=== PATIENT | male | born 1995 | race African-American/Black ===

== ENCOUNTER 2020-09-10 12:27 | Emergency (ER) | payer OTHER ==
[~2020-09-10] VITALS: Ht 177.8 cm; Wt 84.0 kg
[2020-09-10] MEDS: ONDANSETRON ODT 4 MG TAB.RAPDIS PO ONE (13:02)
--- NOTE | 2020-09-10 13:02 | PHYS DOC ---
Past History Past Medical History: No Pertinent History Past Surgical History: No Surgical History Alcohol Use: Occasionally General Adult EDM: Chief Complaint: NAUSEA/VOMITING/DIARRHEA HPI: HPI: 25-year-old male presents with nausea and vomiting for the last 5 days. He is able to keep fluids down, but when he tries to eat food he vomits most of the ti me. He has been able to keep a little bit down. He otherwise feels fine. He is not having any stomach pain or other symptoms. He denies fever or chills. Review of Systems: Review of Systems: Constitutional: Denies fever or chills Eyes: Denies change in visual acuity HENT: Denies nasal congestion or sore throat Respiratory: Denies cough or shortness of breath Cardiovascular: Denies chest pain or edema GI: nausea, vomiting. Denies abdominal pain, bloody stools or diarrhea : Denies dysuria Musculoskeletal: Denies back pain or joint pain Integument: Denies rash Neurologic: Denies headache, focal weakness or sensory changes Endocrine: Denies polyuria or polydipsia Lymphatic: Denies swollen glands Psychiatric: Denies depression or anxiety Heart Score: Risk Factors: Risk Factors: DM, Current or recent (<one month) smoker, HTN, HLP, family history of CAD, obesity. Risk Scores: Score 0 - 3: 2.5% MACE over next 6 weeks - Discharge Home Score 4 - 6: 20.3% MACE over next 6 weeks - Admit for Clinical Observation Score 7 - 10: 72.7% MACE over next 6 weeks - Early Invasive Strategies Current Medications: Current Meds: Current Medications Medications (Trade) Dose Ordered Sig/[facility] Start Time Stop Time Status Last Admin Dose Admin Ondansetron HCl (Zofran Odt) 4 mg 1X ONCE 09/10/20 13:00 09/10/20 13:01 Allergies: Allergies: Allergies Coded Allergies Type Severity Reaction Last Updated Verified No Known Drug Allergies 09/10/20 No Physical Exam: PE: Constitutional: Well developed, well nourished, no acute distress, non-toxic appearance. [] HENT: Normocephalic, atraumatic, bilateral external ears normal, oropharynx moist, no oral exudates, nose normal. [] Eyes: PERRLA, EOMI, conjunctiva normal, no discharge. [] Neck: Normal range of motion, no tenderness, supple, no stridor. [] Cardiovascular:Heart rate regular rhythm, no murmur [] Lungs & Thorax: Bilateral breath sounds clear to auscultation [] Abdomen: Bowel sounds normal, soft, no tenderness, no masses, no pulsatile masses. [] Skin: Warm, dry, no erythema, no rash. [] Back: No tenderness, no CVA tenderness. [] Extremities: No tenderness, no cyanosis, no clubbing, ROM intact, no edema. [] Neurologic: Alert and oriented X 3, normal motor function, normal sensory function, no focal deficits noted. [] Psychologic: Affect normal, judgement normal, mood normal. [] Current Patient Data: Vital Signs: Vital Signs Date Time Temp Pulse Resp B/P (MAP) Pulse Ox O2 Delivery O2 Flow Rate FiO2 09/10/20 12:35 98.3 77 16 147/82 (103) 96 Room Air EKG: EKG: [] Radiology/Procedures: Radiology/Procedures: [] Course & Med Decision Making: Course & Med Decision Making Pertinent Labs and Imaging studies reviewed. (See chart for details) We will give the patient 4 mg of Zofran ODT. He has had no vomiting in the emergency room. He passed p.o. challenge. I will discharge him with a pr escription for the same. He is stable for discharge at this time. [] [place] Disclaimer: [place] Disclaimer: This electronic medical record was generated, in whole or in part, using a voice recognition dictation system. Departure Departure: Impression: Primary Impression: Nausea and vomiting Qualified Codes: R11.2 - Nausea with vomiting, unspecified Disposition: 01 DC HOME SELF CARE/HOMELESS Condition: STABLE Referrals: PCP,NO (PCP) Patient Instructions: Nausea and Vomiting, Beqk-ef-Dvyo Scripts Ondansetron (ONDANSETRON ODT) 4 Mg Tab.rapdis 1 TAB PO PRN Q6-8HRS PRN for VOMITING, #16 TAB Prov: LIZ CHAN DO 09/10/20 LIZ CHAN DO Sep 10, 2020 13:02
[2020-09-10] MEDS ORDERED: ONDA4TAB12 PO (13:37)
[2020-09-10 13:40] VITALS: BP 142/78
== END 2020-09-10 13:38 | disposition home or self-care (01) ==
LOC: ER 12:27
DX: R11.2 Nausea with vomiting, unspecified (principal)
CPT/HCPCS: 99283; Q0162

== ENCOUNTER 2020-09-18 15:10 | Emergency (ER) | payer OTHER ==
[~2020-09-18] VITALS: Ht 177.8 cm; Wt 86.3 kg
[~2020-09-18 15:10] MED LIST: ONDA4TAB12 PO
--- NOTE | 2020-09-18 15:36 | PHYS DOC ---
Past History Past Medical History: No Pertinent History Past Surgical History: No Surgical History Alcohol Use: Occasionally General Adult EDM: Chief Complaint: NAUSEA/VOMITING/DIARRHEA HPI: HPI: 25-year-old male coming in for emesis associate with epigastric pain. Says you that really keep anything down, but p.o. intake resulted emesis this morning. Nonbloody nonbilious. No history of abdominal surgeries. Has been having symptoms intermittently since the beginning of the year but has not followed up with his primary care. Was seen here for the same thing 8 days ago but had normal vitals and was p.o. challenged with Zofran. The Zofran was initially working but is not anymore. No fevers, no food allergies, occasional alcohol use, denies any drug use including marijuana Review of Systems: Review of Systems: Constitutional: Denies fever or chills Eyes: Denies change in visual acuity HENT: Denies nasal congestion or sore throat Respiratory: Denies cough or shortness of breath Cardiovascular: Denies chest pain or edema GI: Denies abdominal pain, nausea, vomiting, bloody stools or diarrhea : Denies dysuria Musculoskeletal: Denies back pain or joint pain Integument: Denies rash Neurologic: Denies headache, focal weakness or sensory changes Endocrine: Denies polyuria or polydipsia Lymphatic: Denies swollen glands Psychiatric: Denies depression or anxiety Heart Score: Risk Factors: Risk Factors: DM, Current or recent (<one month) smoker, HTN, HLP, family history of CAD, obesity. Risk Scores: Score 0 - 3: 2.5% MACE over next 6 weeks - Discharge Home Score 4 - 6: 20.3% MACE over next 6 weeks - Admit for Clinical Observation Score 7 - 10: 72.7% MACE over next 6 weeks - Early Invasive Strategies Allergies: Allergies: Allergies Coded Allergies Type Severity Reaction Last Updated Verified No Known Drug Allergies 09/10/20 No Physical Exam: PE: Constitutional: Well developed, well nourished, no acute distress, non-toxic appearance. [] HENT: Normocephalic, atraumatic, bilateral external ears normal, oropharynx moist, no oral exudates, nose normal. [] Eyes: PERRLA, EOMI, conjunctiva normal, no discharge. [] Neck: Normal range of motion, no tenderness, supple, no stridor. [] Cardiovascular:Heart rate regular rhythm, no murmur [] Lungs & Thorax: Bilateral breath sounds clear to auscultation [] Abdomen: Bowel sounds normal, soft, epigastric tenderness, negative Cole's, no guarding or rebound, no masses, no pulsatile masses. [] Skin: Warm, dry, no erythema, no rash. [] Back: No tenderness, no CVA tenderness. [] Extremities: No tenderness, no cyanosis, no clubbing, ROM intact, no edema. [] Neurologic: Alert and oriented X 3, normal motor function, normal sensory function, no focal deficits noted. [] Psychologic: Affect normal, judgement normal, mood normal. [] EKG: EKG: [] Radiology/Procedures: Radiology/Procedures: CT SCAN OF THE ABDOMEN AND PELVIS WITH IV CONTRAST. History: Reason: NAUSEA AND VOMITING X 3 WEEKS, NO HX / Spl. Instructions: / History: Comparison:None. Procedure: Contiguous axial images of the abdomen and pelvis were performed after the administration of 75 cc of Isovue 370 IV contrast. Oral contrast: No. Findings: The appendix is not well seen. There is a trace of free fluid the pelvis. There is a small fat-containing umbilical hernia. There is mild to moderate wall thickening of the rectum. There is air and stool the remaining colon. The gallbladder appears normal. Liver: Unremarkable Spleen: Unremarkable Pancreas: Unremarkable Adrenal Glands: Unremarkable Kidneys: Unremarkable There is no mass or lymphadenopathy. There is no free air. The urinary bladder appears normal. Impression: 1. Mild to moderate wall thickening of the rectum could be inflammatory or infectious proctitis. This causes mild obstructive changes in the remaining colon. 2. Trace of free fluid. [] Course & Med Decision Making: Course & Med Decision Making Pertinent Labs and Imaging studies reviewed. (See chart for details) Work-up unremarkable, discussed with change antiemetics to Reglan and advised to follow-up for GI appointment [] [place] Disclaimer: [place] Disclaimer: This electronic medical record was generated, in whole or in part, using a voice recognition dictation system. Departure Departure: Impression: Primary Impression: Nausea & vomiting Disposition: 01 DC HOME SELF CARE/HOMELESS Condition: STABLE Referrals: PCP,CHRISTO (PCP) [facility] Patient Instructions: Nausea and Vomiting Scripts Metoclopramide Hcl (REGLAN) 5 Mg Tablet 5 MG PO Q6-8HRS PRN for NAUSEA for 7 Days, #20 TAB 1 Refill Prov: CARLA JUSTICE MD 09/18/20 CARLA JUSTICE MD Sep 18, 2020 15:36
[2020-09-18] MEDS ORDERED: IOHEXOL 300 MG/ML 75 ML VIAL. IV ONE (15:45)
[2020-09-18 16:09] LABS: BASO % 0 % (0-3); EOS % 1 % (0-3); HEMATOCRIT 45.4 % (39.0-53.0); HEMOGLOBIN 15.3 g/dL (13.0-17.5); LYMPH # 2.5 x10^3/uL (1.0-4.8); LYMPH % 46 % (24-48); MEAN CORPUSCULAR HEMOGLOBIN 31 pg (25-35); MEAN CORPUSCULAR HGB CONC 34 g/dL (31-37); MEAN CORPUSCULAR VOLUME 92 fL (79-100); MONO # 0.3 x10^3/uL (0.0-1.1); MONO % 5 % (0-9); NEUT # 2.6 x10^3uL (1.8-7.7); NEUT % 48 % (31-73); PLATELET COUNT 217 x10^3/uL (140-400); RED BLOOD COUNT 4.96 x10^6/uL (4.30-5.70); RED CELL DISTRIBUTION WIDTH 12.6 % (11.5-14.5); WHITE BLOOD COUNT 5.5 x10^3/uL (4.0-11.0)
[2020-09-18 16:16] LABS: CALCIUM 9.8 mg/dL (8.5-10.1); CREATININE 1.3 mg/dL (0.7-1.3); GFR 82.1; POTASSIUM 3.4 mmol/L (3.5-5.1)
--- NOTE | 2020-09-18 16:18 | RAD ---
CT SCAN OF THE ABDOMEN AND PELVIS WITH IV CONTRAST. History: Reason: NAUSEA AND VOMITING X 3 WEEKS, NO HX / Spl. Instructions: / History: Comparison:None. Procedure: Contiguous axial images of the abdomen and pelvis were performed after the administration of 75 cc of Isovue 370 IV contrast. Oral contrast: No. Findings: The appendix is not well seen. There is a trace of free fluid the pelvis. There is a small fat-containing umbilical hernia. There is mild to moderate wall thickening of the rectum. There is air and stool the remaining colon. The gallbladder appears normal. Liver: Unremarkable Spleen: Unremarkable Pancreas: Unremarkable Adrenal Glands: Unremarkable Kidneys: Unremarkable There is no mass or lymphadenopathy. There is no free air. The urinary bladder appears normal. Impression: 1. Mild to moderate wall thickening of the rectum could be inflammatory or infectious proctitis. This causes mild obstructive changes in the remaining colon. 2. Trace of free fluid. End impression PQRS Compliance Statement: One or more of the following individualized dose reduction techniques were utilized for this examination: 1. Automated exposure control 2. Adjustment of the mA and/or kV according to patient size 3. Use of iterative reconstruction technique Electronically signed by: Tacos Wood III, MD (09/18/2020 4:15 PM) [facility]
[2020-09-18 16:21] LABS: ALBUMIN 4.3 g/dL (3.4-5.0); ALBUMIN/GLOBULIN RATIO 1.2 (1.0-1.7); TOTAL BILIRUBIN 0.6 mg/dL (0.2-1.0); TOTAL PROTEIN 7.9 g/dL (6.4-8.2)
[2020-09-18] MEDS ORDERED: POTASSIUM CHLORIDE 20 MEQ TABLET.ER. PO ONE (16:30)
[2020-09-18] MEDS ORDERED: METOCLOPRAMIDE HCL 10 MG/2 ML VIAL. IVP ONE (16:30)
[2020-09-18] MEDS ORDERED: METO5TAB55 PO (17:09)
== END 2020-09-18 17:18 | disposition home or self-care (01) ==
LOC: ER 15:10
DX: R11.2 Nausea with vomiting, unspecified (principal); R10.13 Epigastric pain
CPT/HCPCS: 36415; 74177; 80053; 83605; 83690; 85025; 96374; 99285; J2765; Q9967

== ENCOUNTER 2021-01-16 17:38 | Emergency (ER) | payer OTHER ==
[~2021-01-16] VITALS: Ht 177.8 cm; Wt 87.1 kg
[~2021-01-16 17:38] MED LIST changes: +METO5TAB55 PO
--- NOTE | 2021-01-16 18:04 | EKG ---
[address] [address] Test Date: 2021-01-16 Test Time: 17:50:38 Pat Name: SLY HERNANDEZ Department: Room: Gender: M Audit Lead: ELIZA : 1995 Requested By: CHIDI CHOI Order Number: [id number] Reading MD: Measurements Intervals [place] Rate: 66 P: 36 [place]: 170 QRS: 16 QRSD: 92 T: 15 QT: 322 QTc: 339 Interpretive Statements SINUS RHYTHM NORMAL ECG RI6.02 No previous ECG available for comparison
--- NOTE | 2021-01-16 18:25 | RAD ---
XR CHEST 2V History: Reason: soa / Spl. Instructions: / History: Comparison: None. Findings: No consolidation or pleural effusion. Normal heart size. No pneumothorax. Impression: 1. No acute cardiopulmonary process. Electronically signed by: Andrea Booker DO (01/16/2021 6:23 PM) [facility] [place]
--- NOTE | 2021-01-16 18:48 | PHYS DOC ---
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 States he is a smoker and has a chronic cough, but was at work today, was coughing and began having substernal chest discomfort, 5 out of 10, sharp in nature with no aggravating or alleviating factors. States that he does have some anxiety at baseline as well. States that here in the emergency department his symptoms have resolved. Denies any recent travel, illnesses, fevers, known ill contacts, Covid/flu symptoms. Denies any alcohol or drug use. States he is eating and drinking normally. States he is making urine and stool normally with no blood in either. States his family has no known cardiac history that he is aware of especially his age. Review of Systems Review of Systems Review of systems otherwise unremarkable except noted in HPI Current Medications Current Medications Current Medications Medications (Trade) Dose Ordered Sig/Ta Start Time Stop Time Status Last Admin Dose Admin Ibuprofen (Motrin) 800 mg 1X ONCE 01/16/21 18:45 01/16/21 18:46 UNV Allergies Allergies Allergies Coded Allergies Type Severity Reaction Last Updated Verified No Known Drug Allergies 09/10/20 No Physical Exam Physical Exam Constitutional: Well developed, well nourished, no acute distress, non-toxic appearance. [] Neck: Normal range of motion, no tenderness, supple, no stridor. [] Cardiovascular:Heart rate regular rhythm, no murmur [] Lungs & Thorax: Bilateral breath sounds clear to auscultation [] Abdomen: soft, no tenderness, no masses, no pulsatile masses. [] Skin: Warm, dry, no erythema, no rash. [] Extremities: No tenderness, no cyanosis, no clubbing, ROM intact, no edema. [] Neurologic: Alert and oriented X 3, normal motor function, normal sensory function, no focal deficits noted. [] Psychologic: Affect normal, judgement normal, mood normal. [] Current Patient Data Vital Signs Vital Signs Date Time Temp Pulse Resp B/P (MAP) Pulse Ox O2 Delivery O2 Flow Rate FiO2 01/16/21 17:40 98.2 78 20 127/79 (95) 95 Room Air EKG EKG [] Radiology/Procedures Radiology/Procedures [] Heart Score HEART Score for Chest Pain: HEART Score for Chest Pain Response (Comments) Value History Slighlty/Non-Suspicious 0 ECG Normal 0 Age < 45 0 Risk Factors 1 or 2 Risk Factors 1 Total 1 Risk Factors: Risk Factors: DM, Current or recent (<one month) smoker, HTN, HLP, family history of CAD, obesity. Risk Scores: Risk Factors: DM, Current or recent (<one month) smoker, HTN, HLP, family history of CAD, obesity. Course & Med Decision Making Course & Med Decision Making Patient is a 25-year-old male who presents with chest discomfort Vital signs not concerning. Physical exam noted above. EKG noted above, with no STEMI. Chest x-ray not concerning. Heart score of 1, as patient is a smoker but otherwise no family or personal cardiac history. Patient in the and is in decent shape otherwise. Asymptomatic in the ED. Patient does do PT daily and states it could be muscular related as he works out often. Given ibuprofen in the ED. patient with no other signs or symptoms of infection/Covid. Did offer Covid swab as patient does work in the present and patient politely declined. Advised to call his primary care in the morning. Advised come back to the ED with new or concerning symptoms. Patient grateful, verbalized understanding and agreed with plan of discharge. [] Dragon Disclaimer Dragon Disclaimer This electronic medical record was generated, in whole or in part, using a voice recognition dictation system. Departure Departure: Impression: Primary Impression: Chest pain Additional Impression: Cough Disposition: 01 DC HOME SELF CARE/HOMELESS Condition: GOOD Referrals: PCP,NO (PCP) MINDY VUONG MD Patient Instructions: Chest Pain (Nonspecific), [id number] Additional Instructions: Please read all the attached information. As discussed, please start a short course of ibuprofen that she can get [id number] over the next couple of days. Please call your primary care in the morning to schedule a follow-up visit over the next week or 2. Please come back to the ED with new or concerning symptoms. Problem Qualifiers TAMMY DOVE MD Jan 16, 2021 18:48
[2021-01-16 19:00] VITALS: BP 128/70
[2021-01-16] MEDS ORDERED: IBUPROFEN 800 MG TABLET. PO ONE (19:00)
== END 2021-01-16 19:05 | disposition home or self-care (01) ==
LOC: ER 17:38
DX: R07.89 Other chest pain (principal); R05 Cough; F41.9 Anxiety disorder, unspecified
CPT/HCPCS: 71046; 93005; 99283

== ENCOUNTER 2022-02-19 06:18 | Emergency (ER) | payer OTHER ==
[~2022-02-19] VITALS: Ht 177.8 cm; Wt 98.4 kg
[2022-02-19] MEDS ORDERED: CYCL10TA19 PO (06:26)
--- NOTE | 2022-02-19 06:27 | PHYS DOC ---
Past History Past Medical History: No Pertinent History Past Surgical History: No Surgical History Alcohol Use: Occasionally Adult General HPI HPI Patient is a 26-year-old who presents with a chief complaint of a couple episodes of nonbloody nonbilious emesis last night, requesting a work note for today. Denies any recent travels, traumas, illness, fevers, chest pain, shortness of breath, abdominal pain, diarrhea, dysuria, hematuria or blood in the stool. States he is able to eat and drink. States he is making urine and stool normally for him. States that since he threw up last night he would like a work note for today so he can stay home and rest and drink fluids. Review of Systems Review of Systems Review of systems otherwise unremarkable except noted in HPI Allergies Allergies Allergies Coded Allergies Type Severity Reaction Last Updated Verified No Known Drug Allergies 09/10/20 No Physical Exam Physical Exam Constitutional: Well developed, well nourished, no acute distress, non-toxic appearance. [] HENT: Normocephalic, atraumatic, Eyes: conjunctiva normal, no discharge. [] Neck: Normal range of motion, no tenderness, supple, no stridor. [] Cardiovascular:Heart rate regular rhythm, no murmur [] Lungs & Thorax: No respiratory distress Abdomen: soft, no tenderness, no masses, no pulsatile masses. [] Skin: Warm, dry, no erythema, no rash. [] Back: No tenderness, no CVA tenderness Extremities: No tenderness, no cyanosis, no clubbing, ROM intact, no edema. [] Neurologic: Alert and oriented X 3, normal motor function, normal sensory function, despite discomfort, able to sit, stand and walk, no focal deficits noted. [] Psychologic: Affect normal, judgement normal, mood normal. [] EKG EKG [] Radiology/Procedures Radiology/Procedures [] Heart Score C/O Chest Pain: No Risk Factors: Risk Factors: DM, Current or recent (<one month) smoker, HTN, HLP, family history of CAD, obesity. Risk Scores: Risk Factors: DM, Current or recent (<one month) smoker, HTN, HLP, family history of CAD, obesity. Course & Med Decision Making Course & Med Decision Making Patient is a 26-year-old male who presents with a couple episodes of nausea and vomiting last night wanting a work note for today Vital signs nonconcerning. Physical exam noted above. Given antiemetics. Discussed symptom management at home. Discussed diet and hydration at home Advised to follow-up this morning with primary care physician while he is off to set up a follow-up appointment. Gave return precautions to the ED. Patient grateful, verbalized understanding and agreed with plan of discharge. Dragon Disclaimer Dragon Disclaimer This electronic medical record was generated, in whole or in part, using a voice recognition dictation system. Departure Departure: Impression: Primary Impression: Nausea & vomiting Disposition: HOME / SELF CARE / HOMELESS Condition: STABLE Referrals: PCP,UNKNOWN (PCP) DONOVAN GARCIA MD Patient Instructions: Nausea and Vomiting Additional Instructions: Thank you for coming into the emergency department tonight and allowing us to take care of you. Please read the attached information carefully go over things we discussed. As we discussed, eat a light clear diet over the next couple of days, drink plenty of fluids, call your primary care physician today as you were given over work note at your request to set up a follow-up appointment. Please do not eat anything heavy as we discussed. Please take your nausea medicine as prescribed and as we discussed. Please come back with new or concerning symptoms as discussed. TAMMY DOVE MD Feb 19, 2022 06:27
[2022-02-19] MEDS: MORPHINE SULFATE 4 MG/ML DISP.SYRIN. IM ONE (06:30)
[2022-02-19] MEDS: ACETAMINOPHEN 500 MG TABLET PO ONE (06:30)
[2022-02-19] MEDS: CYCLOBENZAPRINE 10 MG TABLET. PO ONE (06:30)
[2022-02-19] MEDS: KETOROLAC 60 MG/2 ML VIAL. IM ONE (06:30)
[2022-02-19] MEDS ORDERED: LEXAPRO5 MG PO (06:43)
[2022-02-19] MEDS ORDERED: ARIP30TA4 (06:43)
[2022-02-19] MEDS ORDERED: RISP0.2519 (06:43)
[2022-02-19 06:44] VITALS: BP 140/80
[2022-02-19] MEDS: diphenhydrAMINE HCL 25 MG CAPSULE PO ONE (07:11)
[2022-02-19] MEDS: ONDANSETRON ODT 4 MG TAB.RAPDIS PO ONE (07:11)
[2022-02-19] MEDS: ONDANSETRON 4MG ODT 4TABLET STARTPACK. PO ONE (07:12)
--- NOTE | 2022-02-20 01:27 | EKG ---
[address] [address] Test Date: 2022-02-19 Test Time: 06:46:17 Pat Name: SLY HERNANDEZ Department: Room: Gender: M Hotel Maid: : 1995 Requested By: TAMMY DOVE Order Number: [id number] Reading MD: Measurements Intervals [place] Rate: 80 P: 36 [place]: 156 QRS: 19 QRSD: 88 T: 5 QT: 326 QTc: 379 Interpretive Statements SINUS RHYTHM NORMAL ECG RI6.01 No previous ECG available for comparison
== END 2022-02-20 07:30 | disposition home or self-care (01) ==
LOC: ER 06:18
DX: R11.2 Nausea with vomiting, unspecified (principal)
CPT/HCPCS: 93005; 99284; Q0162; Q0163